=== PATIENT | male | born 1930 | race Caucasian/White ===

== ENCOUNTER 2020-03-16 17:02 | Inpatient (IN) | payer OTHER ==
[~2020-03-16] VITALS: Ht 182.9 cm; Wt 70.8 kg
--- NOTE | ~2020-03-16 | HC ---
[facility] [place] [address] CONSULTATION Name: ISABELL MAYERS Room #: 361-P ADM IN M.R.#: [id number] Admission: 03/16/20 Attend Phys: Manny Ludwig MD Discharge: Date of : [birth year] Report #: [id number] THIS REPORT FOR: cc: Luan Richard James D. DO Al-Absi, Ahmed I. MD ~ CC: Luan Ludwig REASON FOR THE CONSULTATION: Elevated creatinine. REASON FOR THE PRESENTATION: Presented from his nursing facility because of hypotension. Poor historian patient. Most of the details were obtained from the medical chart given his mental status. HISTORY OF PRESENT ILLNESS: He is an 89-year-old who was found to have a systolic blood pressure of around 60 in his nursing facility. However, on arrival, the EMS found that his blood pressure was actually 110. The patient is known to have COVID-19 infection. He has history of diabetes mellitus, interstitial lung disease. He was found to have an elevated creatinine at 2.7. There are no prior laboratory values to decide about the patient's kidney issues in the past. I was consulted to manage his chronic kidney disease and potential acute kidney injury. The patient was initiated on IV fluid with good response to the IV fluid when it comes to his blood pressure. ALLERGIES: LISTED SULFA AND DIGOXIN. PAST MEDICAL HISTORY: Obtained from the medical chart and the group home papers. 1. Heart failure. 2. Status post pacemaker. 3. Atrial fibrillation. 4. Ventricular tachycardia. 5. Hyperlipidemia. 6. Hard of hearing. 7. Coronary artery disease. 8. Remote history of renal calculus. PAST SURGICAL HISTORY: From the group home notes included permanent pacemaker placement. SOCIAL HISTORY: He resides in a [facility] facility. FAMILY HISTORY: Unable to ascertain or obtain given his current mentation. REVIEW OF SYSTEMS: Unable to ascertain or to obtain given the patient's current mental status. [facility] [address] [place] [address] CONSULTATION Name: ISABELL MAYERS Room #: 361 ADM IN ..#: [id number] Admission: 03/16/20 Attend Phys: Manny Ludwig MD Discharge: Date of : [birth year] Report #: [id number] MEDICATIONS: [facility] medications were listed are the followin. Flomax. 2. Atorvastatin. 3. Lisinopril. 4. Aspirin. 5. Allopurinol. PHYSICAL EXAMINATION: VITAL SIGNS: Temperature is 36.4, blood pressure is 105/55, pulse rate is 60. HEAD AND NECK: No jugular venous distention. CHEST: No crackles. CARDIOVASCULAR: No rub. ABDOMEN: Soft, nontender. EXTREMITIES: Lower extremities, no edema. SKIN: Dry. Evidence of dehydration is present on his skin with tenting of his skin. NEUROLOGICAL: Hard of hearing. Alert and oriented x 1. LABORATORY VALUES: Hemoglobin is 10.4. ESR is 85. Sodium is 144, potassium is 4.2, BUN is 61, creatinine is 2.7. Chest x-ray, no acute abnormality. ASSESSMENT, IMPRESSION, AND PLAN: 1. Acute kidney injury. This seems to be all prerenal. Continue with the IV fluid. 2. Hypotension, resolved. Continue with the IV fluid. Discontinue all of his blood pressure medications. 3. COVID-19 infection. Currently under isolation. ID following. 4. Avoid nephrotoxins. 5. Continue to follow urine output. 6. Continue to monitor electrolytes. 7. We will continue to follow. By: [id number] [id number] Kenji Mann MD /nt
[2020-03-16 17:03] VITALS: BP 103/57
[2020-03-16 18:28] LABS: ABSOLUTE NEUTROPHILS 7.3 thou/uL (1.4-8.2); BASOPHILS 0.6 % (0.0-2.0); EOSINOPHILS 10.7 % (0.0-3.0); HEMATOCRIT 32.8 % (42.0-52.0); HEMOGLOBIN 10.4 gm/dL (14.0-18.0); LYMPHOCYTES 11.3 % (24.0-44.0); MCH 31.1 pg (26.0-34.0); MCHC 31.6 g/dL (28.0-37.0); MCV 98.5 fL (80.0-100.0); MONOCYTES 5.6 % (1.0-8.0); PLATELET COUNT 198 thou/uL (150-400); POLYS 71.8 % (36.0-66.0); RBC 3.33 mil/uL (4.50-6.00); RDW 20.5 % (10.5-14.5); WBC 10.1 thou/uL (4.0-11.0)
[2020-03-16 18:38] LABS: ANION GAP 10 mmol/L (7-16); BUN 61 mg/dL (7-18); CALCIUM 8.2 mg/dL (8.5-10.1); CHLORIDE 109 mmol/L (98-107); CO2 25 mmol/L (21-32); CREATININE 2.7 mg/dL (0.7-1.3); GLUCOSE 106 mg/dL (74-106); POTASSIUM 4.2 mmol/L (3.5-5.1); SODIUM 144 mmol/L (136-145)
[2020-03-16 18:41] LABS: INR 1.2; TROPONIN-I <0.06 ng/mL (<0.06)
[2020-03-16 19:26] LABS: URINE BILIRUBIN NEGATIVE (Negative); URINE BLOOD 2+ (Negative); URINE CLARITY CLOUDY; URINE COLOR YELLOW; URINE GLUCOSE-RANDOM* NEGATIVE (Negative); URINE KETONES NEGATIVE (Negative); URINE NITRITE-REFLEX NEGATIVE (Negative); URINE PROTEIN (DIPSTICK) 1+ (Negative); URINE UROBILINOGEN 0.2 E.U./dl (0.2-1.0)
[2020-03-16 19:27] LABS: URINE LEUKOCYTES-REFLEX 3+ (Negative)
[2020-03-16 19:41] LABS: SQUAMOUS 0-3 Few /LPF (0-3)
[2020-03-16 19:44] LABS: CASTS None Seen /LPF (None Seen); URINE WBC-REFLEX >25 Many /HPF (0-5); WBC CLUMPS Packed (None Seen)
[2020-03-16 19:45] LABS: CRYSTALS None Seen /LPF (None Seen); URINE RBC 3-10 Few /HPF (0-2)
[2020-03-16 22:43] LABS: URINE CREATININE-RANDOM* 126.3 mg/dL
[2020-03-16 23:37] VITALS: BP 113/49
[2020-03-17 01:01] VITALS: BP 104/79
[2020-03-17 03:56] VITALS: BP 113/60
[2020-03-17] MEDS ORDERED: ALLOPURINOL 10100 M1 PO ×2 (04:19)
[2020-03-17] MEDS ORDERED: LIPITOR10 MG PO (04:20)
[2020-03-17] MEDS ORDERED: ASA81BEC PO (04:20)
[2020-03-17] MEDS ORDERED: VITAMIN D32400 UNIT/ PO (04:22)
[2020-03-17] MEDS ORDERED: ZESTRIL5 MG PO (04:23)
[2020-03-17] MEDS ORDERED: FEOSOL325 M1 PO (04:23)
[2020-03-17] MEDS ORDERED: PROSCAR 5MG TABL5 M1 PO (04:23)
[2020-03-17] MEDS ORDERED: FLOMAX0.4 MG PO (04:24)
[2020-03-17] MEDS ORDERED: SORINE 80 MG TA80 MG PO (04:25)
[2020-03-17] MEDS ORDERED: XARELTO20 MG PO (04:25)
--- NOTE | 2020-03-17 07:45 | EKG ---
[facility] [place] [address] ELECTROCARDIOGRAM REPORT Name: ISABELL MAYERS Room #: 361-P ADM IN M.R.#: [id number] Admission: 03/16/20 Attend Phys: Manny Ludwig MD Discharge: Date of : [birth year] Report #: [id number] THIS REPORT FOR: cc: Luan Richard James D. DO Lundgren, Craig H. MD [facility] ~ THIS REPORT FOR: //name// [facility] ED Test Date: 2020-03-16 Test Time: 17:27:21 Pat Name: ISABELL MAYERS Department: Room: 361 Gender: M Aircraft Maintenance Engineer: TS : [id number] Requested By: Clovis Triana Order Number: [id number] MD: Bryn Muñoz Measurements Intervals Covert Rate: 64 P: 0 FL: 60 QRS: 266 QRSD: 152 T: 87 QT: 548 QTc: 566 Interpretive Statements Ventricular pacing No further analysis attempted due to paced rhythm Baseline wander in lead(s) V3 Compared to ECG 04/19/2007 13:42:19 Pacing is now present Electronically Signed On 03-17-2020 7:45:50 CDT by Bryn Muñoz [email or web address] <ELECTRONICALLY SIGNED> By: Bryn Muñoz MD, [facility] 03/17/20 0745 [id number] Bryn Muñoz MD, FAC /EPI
[2020-03-17 08:23] VITALS: BP 105/55
[2020-03-17 11:46] VITALS: BP 112/57
[2020-03-17 16:02] VITALS: BP 106/52
[2020-03-17 19:18] VITALS: BP 104/54
[2020-03-18 03:51] VITALS: BP 132/68
[2020-03-18 06:55] LABS: ALBUMIN 2.3 g/dL (3.4-5.0); CALCIUM 7.7 mg/dL (8.5-10.1); PHOSPHORUS 2.7 mg/dL (2.5-4.9); POTASSIUM 3.8 mmol/L (3.5-5.1)
[2020-03-18 06:57] LABS: CREATININE 1.7 mg/dL (0.7-1.3)
[2020-03-18 08:30] VITALS: BP 119/63
[2020-03-18 12:10] VITALS: BP 106/69
[2020-03-18 16:11] VITALS: BP 118/62
[2020-03-18 20:14] VITALS: BP 119/59
[2020-03-19 05:25] VITALS: BP 118/47
[2020-03-19 08:07] VITALS: BP 126/65
[2020-03-19 11:34] VITALS: BP 126/65
[2020-03-19] MEDS ORDERED: METOPROLOL SUCC25 M1 PO (12:37)
[2020-03-19] MEDS ORDERED: ZYVOX600 MG PO (12:37)
== END 2020-03-19 15:27 | DRG 871 ==
LOC: ER 17:02 → 3W 19:36 → EROBS 19:36 → 3W 23:49
PROVIDERS: Emergency Medicine; Hospitalist; ADMIT Internal Medicine; ATTEND Internal Medicine
DX: A41.9 Sepsis, unspecified organism (principal); U07.1 COVID-19; N17.9 Acute kidney failure, unspecified; N39.0 Urinary tract infection, site not specified; E87.0 Hyperosmolality and hypernatremia; I25.10 Atherosclerotic heart disease of native coronary artery without angina pectoris; E78.5 Hyperlipidemia, unspecified; I50.9 Heart failure, unspecified; I95.9 Hypotension, unspecified; E11.9 Type 2 diabetes mellitus without complications; N40.0 Benign prostatic hyperplasia without lower urinary tract symptoms; J45.909 Unspecified asthma, uncomplicated; M10.9 Gout, unspecified; I48.0 Paroxysmal atrial fibrillation; E86.0 Dehydration; B95.2 Enterococcus as the cause of diseases classified elsewhere; G89.29 Other chronic pain; I11.0 Hypertensive heart disease with heart failure; Z88.6 Allergy status to analgesic agent; Z88.1 Allergy status to other antibiotic agents; Z88.2 Allergy status to sulfonamides; Z88.8 Allergy status to other drugs, medicaments and biological substances; Z95.0 Presence of cardiac pacemaker
CPT/HCPCS: 10879